=== PATIENT | female | born 2000 | race Caucasian/White ===

== ENCOUNTER 2020-04-05 09:56 | Emergency (ER) | payer MEDICAID, SELFPAY ==
[~2020-04-05] VITALS: Ht 157.5 cm; Wt 56.7 kg
[2020-04-05 10:00] VITALS: BP 117/75; Ht 157.5 cm; Wt 56.7 kg
== END 2020-04-05 10:30 | disposition home or self-care (01) ==
LOC: ED 09:56
DX: U07.1 COVID-19 (principal); J45.909 Unspecified asthma, uncomplicated
CPT/HCPCS: U0003-CS